=== PATIENT | male | born 1975 | race Caucasian/White ===

== ENCOUNTER 2018-01-02 16:57 | Emergency (ER) | payer OTHER ==
[~2018-01-02] VITALS: Ht 172.7 cm; Wt 80.9 kg
[~2018-01-02 16:57] MED LIST: ATENOLOL25 MG PO; EXCEDRIN1 TABLET; LISINOPRIL-HCT1 EAC3 PO; OXYCODONE HCL10 MG PO; RANITIDINE HCL150 MG PO; VYVANSE10 MG PO; VYVANSE30 MG PO
[2018-01-02] MEDS ORDERED: KEFLEX500 MG PO (18:37)
[2018-01-02 18:59] VITALS: BP 144/89
== END 2018-01-02 18:59 | disposition home or self-care (01) ==
LOC: EME 16:57
DX: S81.812A Laceration without foreign body, left lower leg, initial encounter (principal); W31.2XXA Contact with powered woodworking and forming machines, initial encounter; W01.0XXA Fall on same level from slipping, tripping and stumbling without subsequent striking against object, initial encounter; K21.9 Gastro-esophageal reflux disease without esophagitis; I10 Essential (primary) hypertension; F90.9 Attention-deficit hyperactivity disorder, unspecified type; Z23 Encounter for immunization; Z79.891 Long term (current) use of opiate analgesic
CPT/HCPCS: 99281; 99283